=== PATIENT | male | born 1970 | race African-American/Black ===

== ENCOUNTER 2025-03-19 16:15 | Emergency (ER) | payer MEDICAID, OTHER ==
[~2025-03-19] VITALS: Ht 182.9 cm; Wt 129.0 kg
[2025-03-19 16:22] VITALS: O2SAT 99
[2025-03-19 16:43] VITALS: BP 131/83; PULSE 100; RESP 16; TEMP 36.6; O2SAT 98
[2025-03-19 18:43] LABS: HEMATOCRIT. 38.1 % (42.0-52.0); HEMOGLOBIN. 13.1 g/dL (14.0-18.0); MEAN PLATELET VOLUME 7.3 fl (7.4-10.4); PLATELET 204 x1000/uL (130-400); RED BLOOD CELL COUNT 3.85 mill/uL (4.7-6.1); RED CELL DISTRIBUTION WIDTH 14.5 % (11.6-14.6)
[2025-03-19 19:00] LABS: CREATININE 1.3 mg/dL (0.6-1.3); UREA NITROGEN BLOOD 14 mg/dL (9-23)
[2025-03-19 19:02] LABS: ASPARTATE AMINOTRANSFERASE 101 IU/L (<34); BILIRUBIN DIRECT 0.2 mg/dL (<=3.0); BILIRUBIN TOTAL 0.7 mg/dL (0.1-1.0); PROTEIN TOTAL 7.7 g/dL (6.0-8.3)
[2025-03-19 19:35] LABS: EOSINOPHILS % MANUAL 1.0 % (0.0-5.0); LYMPHOCYTES % MANUAL 22.0 % (20.0-50.0); MONOCYTES % MANUAL 13.0 % (2.0-8.0); NEUTROPHILS % MANUAL 64.0 % (45.0-75.0); PLATELET ESTIMATE NORMAL
== END 2025-03-19 20:05 | disposition home or self-care (01) ==
LOC: ER 16:15
DX: J06.9 Acute upper respiratory infection, unspecified (principal); I10 Essential (primary) hypertension; R06.02 Shortness of breath; Z98.890 Other specified postprocedural states; Z79.899 Other long term (current) drug therapy
CPT/HCPCS: 36415; 71045; 80048; 80076; 83880; 85025; 99284